=== PATIENT | female | born 1970 | race American Indian/Alaskan Native ===

== ENCOUNTER 2017-12-09 19:23 | Emergency (ER) | payer MEDICARE ==
[~2017-12-09 19:23] MED LIST: ADRENALIN ONE; SODIUM BICARBONATE IV ONE
[2017-12-09] MEDS ORDERED: HYDROGEN PEROXIDE ONE (20:42)
--- NOTE | 2017-12-09 21:03 | Emergency Department Report ---
ED CPR HPI - General Chief Complaint: Cardiac Arrest/CPR Stated Complaint: CARDIAC ARREST Time Seen by Provider: 12/09/17 19:49 Source: patient, EMS Mode of arrival: Stretcher Limitations: Other - History of Present Illness Initial Comments: Patient is a 47-year-old female who has history of diabetes who is presenting with cardiac arrest. Patient was noted at home to have fallen over in her room. Patient's family states that they heard a thump and with the check on her and she was unconscious. EMS states that on arrival she was in V. tach patient was shocked 3 times. Patient has a internal defibrillator which also fired spontaneously twice before arrival. EMS was unable to intubate the patient secondary to large amounts of stomach contents in the oral cavity. Suctioning was attempted multiple times but they were unable to clear enough to be able to visualize her cords. Patient received 3 A of epinephrine before arrival as well as a bicarbonate. Glucose was performed which read high. - Related Data Allergies Allergy/AdvReac Type Severity Reaction Status Date / Time No Known Allergies Allergy Unverified 12/09/17 20:30 ED Review of Systems ROS: Stated complaint: CARDIAC ARREST Other details as noted in HPI Comment: Unobtainable due to pts medical conditions ED Past Medical Hx - Past Medical History Previous Medical History?: Yes Hx Hypertension: Yes Hx Diabetes: Yes Additional medical history: Pacemaker/Defib - Surgical History Past Surgical History?: Yes Additional Surgical History: abdominal surgery ED Physical Exam - General Limitations: Other General appearance: obtunded - Head Head exam: Present: atraumatic - Eye Eye exam: Present: other (pupils are fixed and dilated) - ENT ENT exam: Present: other (large amount of brown stomach contents as well as large food particles within the mouth and posterior airway.) - Neck Neck exam: Present: normal inspection - Respiratory Respiratory exam: Present: other (there are no spontaneous breath sounds) - Cardiovascular Cardiovascular Exam: Present: other (no spontaneous heart tones) - GI/Abdominal GI/Abdominal exam: Present: soft, distended - Intubation Laryngoscope: Sha Size: 4 ET Tube Size: 7.5 Other Airway Intervention: Glidesc was used on the second attempt. Large amounts of food particles we Tube Placement Confirmation: visualized tube passing t, equal breath sounds bilat, no breath sounds over epi, confirmation by capnometr Intubation Complications: difficult intubation ED Medical Decision Making - Medical Decision Making ACLS protocols were used. Patient received several additional spontaneous defibrillatory shocks. Her internal device during the code effort. Patient was a PA at the time of pronouncement ultrasound was used and showed no cardiac activity that was related to the electrical signals that had a rate between 30 and 40. Time of is 1948 Critical care attestation.: If time is entered above; I have spent that time in minutes in the direct care of this critically ill patient, excluding procedure time. ED Disposition Clinical Impression: Cardiac arrest with pulseless electrical activity Disposition: DC-20 Is pt being admited?: No Does the pt Need Aspirin: No Condition: Stable Referrals: SULEMAN MOFFETT MD [Primary Care Provider] - 3-5 Days
== END 2017-12-09 22:39 ==
LOC: EDBD → ED 19:23
DX: I46.9 Cardiac arrest, cause unspecified (principal); E11.9 Type 2 diabetes mellitus without complications; I10 Essential (primary) hypertension; Z95.818 Presence of other cardiac implants and grafts
CPT/HCPCS: 31500; 92960; 99285; J0171; 92950